=== PATIENT | female | born 1975 | race Caucasian/White ===

== ENCOUNTER 2016-10-05 07:15 | Emergency (ER) | payer BC, OTHER ==
[2016-10-05 07:23] VITALS: BP 114/72
--- NOTE | 2016-10-05 07:33 | UC ---
Throat Pain/Nasal Tristen HPI - HPI Summary HPI Summary: SINUS PAIN AND PRESSURE X 7 DAYS + NASAL CONGESTION, COUGH, + PND NO FEVER , NO CHILLS, + FATIGUE - History of Current Complaint Chief Complaint: UCRespiratory Stated Complaint: SINUS COMPLAINT Time Seen by Provider: 10/05/16 07:25 Hx Obtained From: Patient Hx Last Menstrual Period: 09/30/16 Onset/Duration: Gradual Onset, Lasting Days - 7, Still Present Severity: Moderate Cough: Nonproductive Associated Signs & Symptoms: Positive: Sinus Discomfort, Nasal Discharge. Negative: Fever, Vomiting, Rash - Allergies/Home Medications Allergies/Adverse Reactions: Allergies Allergy/AdvReac Type Severity Reaction Status Date / Time Acetaminophen [From Percocet] Allergy Intermediate Hives Verified 10/05/16 07:23 Oxycodone [From Percocet] Allergy Intermediate Hives Verified 10/05/16 07:23 Penicillin G Allergy Intermediate Hives Verified 10/05/16 07:23 Sulfa Drugs Allergy Intermediate Hives Verified 10/05/16 07:23 Propoxyphene AdvReac Mild Nausea Verified 10/05/16 07:23 [From Darvocet-N] PMH/Surg Hx/FS Hx/Imm Hx Previously Healthy: Yes - Surgical History Surgical History: Yes Surgery Procedure, Year, and Place: tubal ligation 2001 - Family History Known Family History: Negative: Diabetes - Social History Alcohol Use: None Substance Use Type: None Smoking Status (MU): Former Smoker Type: Cigarettes Amount Used/How Often: 1ppd Review of Systems Constitutional: Negative Skin: Negative Eyes: Negative ENT: Sore Throat, Nasal Discharge Respiratory: Cough Cardiovascular: Negative Gastrointestinal: Negative All Other Systems Reviewed And Are Negative: Yes Physical Exam Triage Information Reviewed: Yes Appearance: Well-Appearing, No Pain Distress, Well-Nourished Vital Signs: Initial Vital Signs Temp 98.8 F 10/05/16 07:17 Pulse 82 10/05/16 07:17 Resp 16 10/05/16 07:17 BP 114/72 10/05/16 07:17 Pulse Ox 100 10/05/16 07:17 Eyes: Positive: Conjunctiva Clear ENT: Positive: Normal ENT inspection, Hearing grossly normal, Pharyngeal erythema, Nasal congestion, Nasal drainage, TMs normal, Other: - + BILATERAL MAX SINUS TENDERNESS Neck exam: Normal Neck: Positive: Supple, Nontender, No Lymphadenopathy Respiratory: Positive: Chest non-tender, Lungs clear, Normal breath sounds, No respiratory distress Cardiovascular: Positive: RRR, No Murmur, Pulses Normal Skin Exam: Normal Skin: Negative: rashes Throat Pain/Nasal Course/Dx - Differential Dx/Diagnosis Provider Diagnoses: SINUSITIS Discharge - Discharge Plan Condition: Stable Disposition: HOME Prescriptions: Azithromycin TAB* [Zithromax TAB (Z-HAI) 250 mg #6 tabs] 2 tab PO .TODAY, THEN 1 DAILY #1 hai Patient Education Materials: Sinusitis (ED) Referrals: Bindu Ariza MD [Primary Care Provider] - If Needed
== END 2016-10-05 07:40 | disposition home or self-care (01) ==
LOC: UCCORT 07:15
DX: J32.9 Chronic sinusitis, unspecified (principal); Z88.6 Allergy status to analgesic agent; Z88.5 Allergy status to narcotic agent; Z88.0 Allergy status to penicillin; Z88.2 Allergy status to sulfonamides; Z87.891 Personal history of nicotine dependence
CPT/HCPCS: 99212; G0463